=== PATIENT | male | born 1965 | race Caucasian/White ===

== ENCOUNTER 2019-07-21 12:27 | Day surgery (SDC) | payer OTHER ==
[~2019-07-21] VITALS: Ht 167.6 cm; Wt 105.5 kg
[~2019-07-21 12:27] MED LIST: ALBU90OI INH; BUDE6HFA INH; DICLOFENAC SOD100 G1; LOSARTAN-HCTZ1 EAC2 PO; METFORMIN HCL1000 MG PO; METPRE4DP PO; OMEP20ER PO; PROAIR RESPICL90 MCG; ROPI1 PO; Zithromax250 MG PO
== END 2019-07-21 14:34 | disposition home or self-care (01) ==
LOC: ORSCSDS 12:27
PROVIDERS: Surgery
PROC: 0DBM8ZX Excision of Descending Colon, Via Natural or Artificial Opening Endoscopic, Diagnostic (ICD-10-PCS; principal; 2019-07-21 13:45)
DX: Z12.11 Encounter for screening for malignant neoplasm of colon (principal); Z86.010 Personal history of colon polyps; G47.33 Obstructive sleep apnea (adult) (pediatric); I10 Essential (primary) hypertension; K21.9 Gastro-esophageal reflux disease without esophagitis; F41.9 Anxiety disorder, unspecified; E78.5 Hyperlipidemia, unspecified; E11.9 Type 2 diabetes mellitus without complications; E66.9 Obesity, unspecified; Z68.37 Body mass index [BMI] 37.0-37.9, adult; F17.210 Nicotine dependence, cigarettes, uncomplicated; Z79.84 Long term (current) use of oral hypoglycemic drugs; Z79.899 Other long term (current) drug therapy
CPT/HCPCS: 82947; 88305; J2704

== ENCOUNTER 2021-08-15 08:42 | Day surgery (SDC) | payer OTHER ==
[~2021-08-15] VITALS: Ht 167.6 cm; Wt 90.1 kg
[2021-08-15] MEDS ORDERED: GABA400 PO (08:59)
== END 2021-08-15 11:30 | disposition home or self-care (01) ==
LOC: ORSCSDS 08:42
PROVIDERS: Orthopaedic Surgery
PROC: 0JBK0ZZ Excision of Left Hand Subcutaneous Tissue and Fascia, Open Approach (ICD-10-PCS; principal; 2021-08-15 10:00)
DX: L72.0 Epidermal cyst (principal); I10 Essential (primary) hypertension; G47.33 Obstructive sleep apnea (adult) (pediatric); J44.9 Chronic obstructive pulmonary disease, unspecified; F17.210 Nicotine dependence, cigarettes, uncomplicated; E11.9 Type 2 diabetes mellitus without complications; Z79.84 Long term (current) use of oral hypoglycemic drugs; Z79.899 Other long term (current) drug therapy
CPT/HCPCS: 82947; 88304; J0690; J1100; J2250; J2405; J2704; J2795; J3010; J7120

== ENCOUNTER → 2023-04-17 | Outpatient (CLI) | payer OTHER ==
[~2023-04-17] MED LIST changes: +GABA400 PO
[2023-04-17 15:43] LABS: BASOPHILS ABSOLUTE AUTO 0.07 K/mm3 (0.00-0.23); BASOPHILS PERCENT AUTO 1 % (0-2); EOSINOPHILS ABSOLUTE AUTO 0.32 K/mm3 (0.00-0.68); EOSINOPHILS PERCENT AUTO 3 % (0-6); Hematocrit 44.3 % (37.0-53.0); Hemoglobin 14.8 g/dL (13.5-17.5); IMMATURE GRAN ABSOLUTE AUTO 0.03 K/mm3 (0.00-0.10); IMMATURE GRAN PERCENT AUTO 0 % (0-1); LYMPHOCYTES ABSOLUTE AUTO 2.89 K/mm3 (0.84-5.20); LYMPHOCYTES PERCENT AUTO 30 % (21-46); MONOCYTES ABSOLUTE AUTO 0.88 K/mm3 (0.16-1.47); MONOCYTES PERCENT AUTO 9 % (4-13); Mean Corpuscular HGB 28.4 pg (26.0-34.0); Mean Corpuscular HGB Conc 33.4 g/dL (31.5-36.5); Mean Corpuscular Volume 85 fL (80-100); Mean Platelet Volume 10.5 fL (9.1-12.4); NEUTROPHILS ABSOLUTE AUTO 5.37 K/mm3 (1.96-9.15); NEUTROPHILS PERCENT AUTO 56 % (41-73); Platelet Count 372 K/mm3 (150-400); RDW Coefficient Variation 12.5 % (11.7-14.2); RDW Standard Deviation 38.7 fL (35.1-46.3); Red Blood Cell Count 5.22 M/mm3 (4.30-5.90); White Blood Cell Count 9.56 K/mm3 (4.00-11.30)
[2023-04-17 16:36] LABS: Alanine Aminotransfer (ALT/SGP 36 U/L (12-78); Alk Phos 54 U/L (50-136); Anion Gap 6 mmol/L (6-16); Aspartate Aminotrans (AST/SGOT 16 U/L (12-37); Bilirubin, Total 0.4 mg/dL (0.1-1.0); Blood Urea Nitrogen 18 mg/dL (8-24); CHOL/HDL RATIO 2.6; CO2, Blood 26 mmol/L (21-32); Calcium, Blood 8.8 mg/dL (8.5-10.1); Chloride, Blood 107 mmol/L (98-108); Cholesterol 141 mg/dL (50-200); Glucose, Blood 101 mg/dL (70-99); HDL Cholesterol 55 mg/dL (>39); LDL/HDL RATIO 1.2; Low Density Lipoprotein Chol 67 mg/dL (0-110); Potassium, Blood 3.7 mmol/L (3.5-5.5); Sodium, Blood 139 mmol/L (136-145); Triglycerides 94 mg/dL (30-160); Very Low Density Lipoprot Chol 18 mg/dL (6-32)
[2023-04-17 16:45] LABS: Albumin/Globulin Ratio 1.1 (0.8-1.8); Bun/Creatinine Ratio 19.3 (12.0-20.0); Creatinine, Blood 0.93 mg/dL (0.60-1.20); Globulin, Blood 3.5 g/dL (2.2-4.0); Glomerular Filtration Rate 95 (60-); Thyroid Stimulating Hormone 0.869 uIU/mL (0.360-4.800); Total Protein, Blood 7.5 g/dL (6.4-8.2)
== END | disposition home or self-care (01) ==
LOC: LAB 12:55 → LAB SHORT 12:55
PROVIDERS: Family Medicine
DX: E11.9 Type 2 diabetes mellitus without complications (principal); I10 Essential (primary) hypertension
CPT/HCPCS: 80053; 80061; 84443; 85025

== ENCOUNTER → 2025-01-06 | Outpatient (CLI) | payer OTHER ==
[~2025-01-06] MED LIST changes: +GABA300 PO; -GABA400 PO; -LOSARTAN-HCTZ1 EAC2 PO; +LOSARTAN-HCTZ1 EAC6 PO; -PROAIR RESPICL90 MCG; +PROAIR RESPICL90 MCG IH
[2025-01-06 15:39] LABS: Microalb/Creat Ratio UR, Rand 5.438 mg/g (0.000-30.000); Microalbumin, Random Urine 8.7 mg/L (0.000-20.000)
== END ==
LOC: LAB 09:17 → LAB SHORT 09:17
PROVIDERS: Family Medicine
DX: E11.9 Type 2 diabetes mellitus without complications (principal)
CPT/HCPCS: 82043; 82570